=== PATIENT | male | born 1940 | race African-American/Black ===

== ENCOUNTER 2018-01-30 14:42 | Emergency (ER) | payer OTHER ==
[~2018-01-30] VITALS: Ht 180.3 cm; Wt 74.8 kg
[2018-01-30 15:07] VITALS: BP 146/90
[2018-01-30] MEDS ORDERED: Ketorolac 30mg Inj IV ONE (15:15)
[2018-01-30] MEDS ORDERED: Morphine Sulfate 4mg/ml Inj (IV USE ONLY) IVP ONE ×2 (15:15→18:00)
[2018-01-30 15:25] LABS: BASOPHILS % (AUTO) 0.4 % (0.0-2.0); EOSINOPHILS % (AUTO) 0.3 % (0.0-3.0); HEMATOCRIT 36.8 % (42.0-52.0); HEMOGLOBIN 11.2 G/DL (14.2-18.0); LYMPHOCYTES % (AUTO) 10.9 % (20.0-45.0); MEAN CORPUSCULAR VOLUME 74 FL (80-99); MONOCYTES % (AUTO) 6.8 % (1.0-10.0); NEUTROPHILS % (AUTO) 81.6 % (45.0-75.0); PLATELET COUNT 131 K/UL (150-450); RED BLOOD COUNT 4.98 M/UL (4.70-6.10); RED CELL DISTRIBUTION WIDTH 12.7 % (11.6-14.8); WHITE BLOOD COUNT 9.5 K/UL (4.8-10.8)
[2018-01-30 15:40] LABS: ANION GAP 3 mmol/L (5-15); BLOOD UREA NITROGEN 16 mg/dL (7-18); CALCIUM 8.9 MG/DL (8.5-10.1); CARBON DIOXIDE 30 MMOL/L (21-32); CHLORIDE 99 MMOL/L (98-107); POTASSIUM 4.1 MMOL/L (3.5-5.1); SODIUM 132 MMOL/L (136-145)
[2018-01-30 15:45] LABS: ALANINE AMINOTRANSFERASE 26 U/L (12-78); ALBUMIN 3.7 G/DL (3.4-5.0); ALBUMIN/GLOBULIN RATIO 0.8 (1.0-2.7); ALKALINE PHOSPHATASE 75 U/L (46-116); ASPARTATE AMINO TRANSFERASE 27 U/L (15-37); BILIRUBIN,TOTAL 0.7 MG/DL (0.2-1.0)
--- NOTE | 2018-01-30 15:58 | Emergency Room Report ---
History of Present Illness General Chief Complaint: Pain Source: Patient, EMS Present Illness HPI 77-year-old male presents ED complaining of left leg pain. States that he had a mechanical fall yesterday at his rehabilitation facility. Has been there status post cervical laminectomy in January 2018 at [facility]. Patient states he's having pain from his left hip going down to his left knee. 10 out of 10, throbbing. Unable to bear weight. Denies any other injuries. Denies any neck pain or back pain. No other aggravating relieving factors. Denies any other associated symptoms Allergies: Coded Allergies: No Known Allergies (Unverified , 01/30/18) Patient History Past Medical History: DM Past Surgical History: other - cevical laminectomy 02/03 Pertinent Family History: none Social History: Denies: smoking, alcohol use, drug use Immunizations: UTD Reviewed Nursing Documentation: PMH: Agreed; PSxH: Agreed Nursing Documentation-PMH Past Medical History: No History, Except For Hx Diabetes: Yes Review of Systems All Other Systems: negative except mentioned in HPI Physical Exam Vital Signs Date Time Temp Pulse Resp B/P (MAP) Pulse Ox O2 Delivery O2 Flow Rate FiO2 01/30/18 14:43 98.8 88 18 146/90 99 Room Air 98.8 Sp02 EP Interpretation: reviewed, normal General Appearance: no apparent distress, alert, GCS 15, non-toxic Head: normocephalic Eyes: bilateral eye normal inspection, bilateral eye PERRL ENT: hearing grossly normal, normal pharynx, no angioedema, normal voice Neck: full range of motion, supple, no meningismus, no bony tend, supple/symm/ no masses Respiratory: normal inspection Cardiovascular #1: normal inspection Gastrointestinal: normal bowel sounds, non tender, soft, non-distended, no guarding, no rebound Rectal: deferred Genitourinary: no CVA tenderness, no vertebral tenderness Musculoskeletal: decreased range of motion - L hip, tender - L hip, L femur Neurologic: alert, oriented x3, responsive, motor strength/tone normal, sensory intact, speech normal Psychiatric: normal inspection Skin: normal color Lymphatic: normal inspection Medical Decision Making Diagnostic Impression: Primary Impression: Intertrochanteric fracture of left femur Qualified Codes: S72.145A - Nondisplaced intertrochanteric fracture of left femur, initial encounter for closed fracture Additional Impression: Fall Qualified Codes: W19.XXXA - Unspecified fall, initial encounter ER Course Hospital Course 77-year-old male presents to ED with L hip pain, unable to ambulate s/p fall Differential diagnoses include: fracture, dislocation, contusion Clinical course Patient placed on stretcher. After initial history and physical I ordered labs , pain medication and imaging studies Labs reviewed-no leukocytosis noted, electrolytes okay, hemoglobin/hematocrit okay Patient unable to position for x-rays because of pain. These ordered which show left intertrochanteric fracture patient will be transferred to [facility] for continuity of care i. I feel this is a highly complex case requiring extensive working including EKG/Rhythm strip, Xray/CT/US, Blood/urine lab work, repeat exams while in ED, and administration of strong opiates/narcotics for pain control, admission to hospital or close patient follow up. Diagnosis - intertrochanteric fracture, fall transferred in serious condition Labs Test 01/30/18 15:20 White Blood Count 9.5 K/UL (4.8-10.8) Red Blood Count 4.98 M/UL (4.70-6.10) Hemoglobin 11.2 G/DL (14.2-18.0) Hematocrit 36.8 % (42.0-52.0) Mean Corpuscular Volume 74 FL (80-99) Mean Corpuscular Hemoglobin 22.6 PG (27.0-31.0) Mean Corpuscular Hemoglobin Concent 30.5 G/DL (32.0-36.0) Red Cell Distribution Width 12.7 % (11.6-14.8) Platelet Count 131 K/UL (150-450) Mean Platelet Volume 8.8 FL (6.5-10.1) Neutrophils (%) (Auto) 81.6 % (45.0-75.0) Lymphocytes (%) (Auto) 10.9 % (20.0-45.0) Monocytes (%) (Auto) 6.8 % (1.0-10.0) Eosinophils (%) (Auto) 0.3 % (0.0-3.0) Basophils (%) (Auto) 0.4 % (0.0-2.0) Sodium Level 132 MMOL/L (136-145) Potassium Level 4.1 MMOL/L (3.5-5.1) Chloride Level 99 MMOL/L (98-107) Carbon Dioxide Level 30 MMOL/L (21-32) Anion Gap 3 mmol/L (5-15) Blood Urea Nitrogen 16 mg/dL (7-18) Creatinine 1.0 MG/DL (0.55-1.30) Estimat Glomerular Filtration Rate mL/min (>60) Glucose Level 104 MG/DL (74-106) Calcium Level 8.9 MG/DL (8.5-10.1) Total Bilirubin 0.7 MG/DL (0.2-1.0) Aspartate Amino Transf (AST/SGOT) 27 U/L (15-37) Alanine Aminotransferase (ALT/SGPT) 26 U/L (12-78) Alkaline Phosphatase 75 U/L (46-116) Total Protein 8.1 G/DL (6.4-8.2) Albumin 3.7 G/DL (3.4-5.0) Globulin 4.4 g/dL Albumin/Globulin Ratio 0.8 (1.0-2.7) CT/MRI/US Diagnostic Results CT/MRI/US Diagnostic Results #1: Imaging Test Ordered: CT Hip Impression L intertrochanteric fx mildly displaced CT/MRI/US Diagnostic Results #2: Imaging Test Ordered: L femur Impression L intertrochanteric fx CT/MRI/US Diagnostic Results #3: Imaging Test Ordered: L knee Impression no fx. prepatellar swelling Last Vital Signs Date Time Temp Pulse Resp B/P (MAP) Pulse Ox O2 Delivery O2 Flow Rate FiO2 01/30/18 15:21 98.8 01/30/18 15:07 78 18 146/90 99 Room Air Status: improved [facility] Condition: Serious Referrals: [facility],REFERR[facility] (PCP) Vish Loving MD Jan 30, 2018 15:58
--- NOTE | 2018-01-30 17:23 | Diagnostic Imaging Report ---
Indication: Pain, status post fall yesterday Technique: No IV contrast, per trauma protocol Spiral acquisitions obtained through the left femur Multiplanar reconstructions were generated. Total dose length product 151 mGycm. CTDIvol(s) 15 mGy. Radiation dose was minimized using automated exposure control Comparison: none Findings: There is an intertrochanteric fracture of the left hip. This is posteriorly angulated but otherwise nondisplaced No femoral shaft fracture demonstrated. There is degenerative proliferative change of the left hip joint but no joint space narrowing. There is mild ecchymosis of the overlying subcutaneous fat and of the muscles lateral to the proximal femur. No knee joint effusion demonstrated. Impression: Positive for left hip intertrochanteric fracture. No evidence of femoral shaft fracture The CT scanner at [facility] is accredited by the [employer] and the scans are performed using protocols designed to limit radiation exposure to as low as reasonably achievable to attain images of sufficient resolution adequate for diagnostic evaluation.
--- NOTE | 2018-01-30 17:23 | Diagnostic Imaging Report ---
Indication: Left hip, femur, knee pain, status post mechanical fall yesterday Technique: No IV contrast per trauma protocol. Spiral acquisitions obtained through the solid Multiplanar reconstructions were generated. Total dose length product 329.32 mGycm. CTDIvol(s) 10.32 mGy. Radiation dose was minimized using automated exposure control Comparison: none Findings: There is an intertrochanteric fracture of the left femur. This is slightly posteriorly angulated but otherwise nondisplaced. No associated pelvic fracture is demonstrated. There are degenerative proliferative changes of both hips. Degenerative joint spaces are preserved. The pelvic viscera demonstrate distention of the rectum by feces. There is mild prostatomegaly. There is evidence of slight ecchymosis of the left hip region subcutaneous fat. There are degenerative changes of the lumbosacral junction and of the sacroiliac joints. Impression: Positive for left hip intertrochanteric fracture Possible mild rectal fecal impaction incidentally noted Lumbosacral degenerative changes The CT scanner at [facility] is accredited by the [employer] and the scans are performed using protocols designed to limit radiation exposure to as low as reasonably achievable to attain images of sufficient resolution adequate for diagnostic evaluation.
--- NOTE | 2018-01-30 17:29 | Diagnostic Imaging Report ---
Indication: Pain status post fall yesterday Technique: No IV contrast utilized, per trauma protocol. Spiral acquisitions obtained through the left knee Multiplanar reconstructions were generated. Total dose length product 364.62 mGycm. CTDIvol(s) 15.26 mGy. Radiation dose was minimized using automated exposure control Comparison: none Findings: At the medial aspect of the lateral femoral condyle, within the intercondylar notch, there is an osteochondral defect with a nondisplaced bony fragment. Both sides of this appear to be corticated, so the acuity of this is indeterminate. No other acute fractures. No dislocations. The joint spaces are preserved. No definite effusion. Small superior pole patellar traction osteophytes are noted. There is minimal thickening of the prepatellar subcutaneous fat, may indicate a mild contusion. Impression: Osteochondral fracture of the medial aspect of the lateral femoral condyle. Acuity of this is indeterminate; suspect old given cortication of the fragment and absence of a significant joint effusion but acute injury as etiology of this is certainly possible No other acute abnormality demonstrated Equivocal soft tissue thickening of the prepatellar subcutaneous fat, could indicate a mild contusion The CT scanner at [facility] is accredited by the [employer] and the scans are performed using protocols designed to limit radiation exposure to as low as reasonably achievable to attain images of sufficient resolution adequate for diagnostic evaluation.
[2018-01-30] MEDS ORDERED: Sodium Chloride 500ML 500 ML IV ONE (18:00)
[2018-01-30] MEDS ORDERED: PROSCAR5 MG ORAL (18:17)
[2018-01-30] MEDS ORDERED: TAMSULOSIN HCL0.4 MG ORAL (18:17)
[2018-01-30] MEDS ORDERED: [UNRECOGNIZED DRUG - OTHER] (18:17)
[2018-01-30] MEDS ORDERED: VITAMIN D250000 UNI1 ORAL (18:17)
[2018-01-30] MEDS ORDERED: NORCO 5-325 TA1 EACH ORAL (18:17)
[2018-01-30] MEDS ORDERED: FOSAMAX70 MG ORAL (18:17)
[2018-01-30] MEDS ORDERED: GLIPIZIDE5 MG ORAL ×2 (18:17→18:20)
[2018-01-30] MEDS ORDERED: CIALIS5 MG PO (18:17)
[2018-01-30] MEDS ORDERED: SERTRALINE HCL50 MG ORAL (18:17)
[2018-01-30] MEDS ORDERED: ACETAMINOPHEN-1 EAC1 ORAL (18:17)
[2018-01-30] MEDS ORDERED: BENAZEPRIL HCL20 MG ORAL (18:17)
[2018-01-30] MEDS ORDERED: BACTROBAN NASAL1 GM NASAL (18:17)
[2018-01-30] MEDS ORDERED: GABAPENTIN300 MG ORAL (18:17)
[2018-01-30 20:05] VITALS: BP 154/98
[2018-01-30 21:21] VITALS: BP 154/98
== END 2018-01-30 21:27 | disposition short-term general hospital (02) ==
LOC: EDBD 14:48 → EMR 15:50
DX: S72.145A Nondisplaced intertrochanteric fracture of left femur, initial encounter for closed fracture (principal); E11.9 Type 2 diabetes mellitus without complications; W18.30XA Fall on same level, unspecified, initial encounter; Y92.89 Other specified places as the place of occurrence of the external cause
CPT/HCPCS: 36415; 73700; 80053; 85025; 96374; 96375; 96376; 99285; J1885; J2270; J7040